=== PATIENT | female | born 2005 | race Caucasian/White ===

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

== ENCOUNTER 2025-03-24 11:23 | Emergency (ER) | payer BC, SELFPAY ==
--- OUTSIDE RECORDS SUMMARY | 2025-03-24 11:24 | XMS_ITS | Clinical Summary ---
Author Organization [facility] Address [address] [place] [address] Care Team Providers Care Tubing Oiler Name Role Phone None Reported, Pcp Primary Care Provider Unavail able Source Comments Patient records contain information from all sites at [facility]. For routine questions regarding patient records, call [phone] during business hours, M-F 8:00 AM - 5:00 PM Central Time. Record requests for emergency care only can be directed to [phone] at any time.[facility] Allergies No known active allergies Medications * This document contains information received from the source organization and may not represent a complete record from that organization. No known medications Active Problems No known active problems Social History Tobacco Use Types Packs/Day Years Used Date Smoking Tobacco: Never Passive Smoke Exposure: Never Smokeless Tobacco: Never Tobacco Cessation:Counseling Given: Not Answered Hunger Vital Sign Answer Date Recorded Within the past 12 months, y ou worried that your food would run out before you got the money to buy more. Never true 06/22/20 23 Within the past 12 months, t he food you bought just didn't last and you didn't have money to get more. Never true 06/22/2023 PRAPARE - Transportation Answer Date Re corded In the past 12 months, has l ack of transportation kept you from medical appointments or from getting medications? No 05/26 In the past 12 months, has l ack of transportation kept you from meetings, work, or from getting things needed for daily living? No 06/22/2023 Housing Stability Answer Date Recorded What is your living situation today? [facility] 06/22/2023 Comments No Sex and Gender Information Value Date Recorded Sex Assigned at Female 06/22/2023 4:09 PM LEGAL INSTRUMENTS EXAMINER Legal Sex Female 5:59 PM CDT Gender Identity Female 06/22/2023 4:09 PM LEGAL INSTRUMENTS EXAMINER Sexual Orientation Straight 06/22/2023 4: 09 PM LEGAL INSTRUMENTS EXAMINER Last Filed Vital Signs Vital Sign Reading Time Taken Comments Blood Pressure 134/85 05/08/2023 6:20 PM CDT Pulse 103 05/08/2023 6:20 PM CDT Temperature 36.7 C (98.1 F) 05/08/2023 6:20 PM CDT Respiratory Rate 18 05/08/2023 7:42 PM CDT Oxygen Saturation 98% 05/08/2023 6:20 PM CDT Inhaled Oxygen Concentration - - Weight 79.6 kg (175 lb 7.8 oz) 05/26/2023 7:57 A M CDT Height 166 cm (5' 5.35) 05/26/2023 7:57 AM CDT Body Mass Index 28.89 05/26/2023 7:57 AM CDT Plan of Treatment Health Maintenance Due Date Last Done Comments Anemia/Iron Deficiency Screening During Well Child Visit (if High Risk Menstruating Female) 2004 Chlamydia and Gonorrhea Screening 2004 HIV Screening 2004 Hearing Screening during Well Child Visit 2004 Hepatitis C Screening 2004 TB Screening during Well Child Visit 2004 1 week Well Child Check-Up 2004 1 month Well Child Check-Up 2004 2 month Well Child Check-Up 2004 4 month Well Child Check-Up 01/12/2005 9 month Well Child Check-Up 06/14/2005 15 month Well Child Check-Up 12/12/2005 18 month Well Child Check-Up 03/14/2006 2 year Well Child Check-Up 09/14/2006 30 month Well Child Check-Up 03/14/2007 3 year Well Child Check-Up 09/14/2007 Well Child Check-Up Completed in Past Year 09/14/2007 5 year Well Child Check-Up 09/14/2009 6 year Well Child Check-Up 09/14/2010 7 year Well Child Check-Up 09/14/2011 8 year Well Child Check-Up 09/14/2012 10 year Well Child Check-Up 09/14/2014 12 year Well Child Check-Up 09/14/2016 13 year Well Child Check-Up 09/14/2017 14 year Well Child Check-Up 09/14/2018 Vision Screening during Well Child Visit 2018 15 year Well Child Check-Up 09/14/2019 17 year Well Child Check-Up 09/14/2021 18 year Well Child Check-Up 09/14/2022 19 year Well Child Check-Up 09/14/2023 COVID-19 Vaccine ( season) 2024 05/28/2022, 07/10/2021, 11/17/2020, Additional history exists Depression Screening (Annual PHQ-2) 07/24/2024 19 year Well Child Check-Up 09/14/2024 Well Child Check-Up ([facility]) 09/14/2024 DTaP,Tdap,and Td Vaccines (7 - Td or Tdap) 10/21/2024 10/21/2014, 10/16/2008, 03/07/2006, Additional history exists Influenza Vaccine (#1) 2025 , 06/05/2021, 05/05/2020, Additional history exists Hepatitis B Vaccines Completed 04/25/2005, 2004, 2004 Pneumococcal vaccine (0-49 years) Aged Out 03/07/2006, 04/25/2005, 03/07/2005, Additional history exists No longer eligible based on patient's age to complete this topic IPV Vaccines Completed 10/16/2008, 09/2004, 03/07/2005, Additional history exists HPV Vaccines Completed 01/03/2017, 05/12/2016 Meningococcal Vaccine Completed 08/27/2021, 017 Insurance [facility] Care Teams Tubing Oiler Relationship Specialty Start Date End Date None Reported, Pcp PCP - General Family Medicine 05/08/23
[2025-03-24 11:35] VITALS: BP 137/84; PULSE 91; RESP 18; TEMP 36.5; O2SAT 98; BMI 30.2
--- NOTE | 2025-03-24 11:44 | ED_ITS ---
HPI - Female Genitourinary General Time Seen by Provider: 11:44 Date Seen: 03/24/25 Chief complaint: Urogenital Problems, Female Stated complaint: possible UTI Time Seen by Provider: 03/24/25 11:24 Source: patient and RN notes reviewed Mode of arrival: ambulatory Limitations: no limitations History of Present Illness HPI Narrative: This 19-year-old female is presenting to the ER with concern of possible urinary tract infection. She started with dysuria/burning urination this morning and has started to notice some blood in her urine. She has frequency, is uncom fortable with this. She has no back pain/no flank pain. No nausea or vomiting, no abdominal pain. No fevers or chills. She is on oral contraceptives. No new sexual partners, no concerns for any STIs. She has not had a bladder infection before. MD elicited complaint: dysuria and UTI Related Data Home Medications ?Medication ?Instructions ?Recorded ?Confirmed naproxen 500 mg tablet 500 mg PO .prn pain 08/08/24 12/25/24 Previous Rx's ?Medication ?Instructions ?Recorded levonorgestrel-ethinyl estradiol 1 tab PO QDAY #84 tab s 08/08/24 0.1 mg-20 mcg tablet (Aviane) cephalexin 500 mg tablet 500 mg PO TID #15 tabs 03/24 phenazopyridine 100 mg tablet 100 mg PO TID PRN pain 6 doses #6 03/24/25 tabs Allergies Allergy/AdvReac Type Severity Reaction Status Date / Time seasonal Allergy Mild Sneezing Uncoded 12/25/24 08:35 Review of Systems Narrative: [facility]. [facility] Urinary tract infection (08/06/10) ?N39.0 - Urinary tract infection, site not specified (ICD-10) Left hip pain ?M25.552 - Pain in left hip (ICD-10) Right hip pain ?M25.551 - Pain in right hip (ICD-10) History of deviated nasal septum ?Z87.09 - Personal history of other diseases of the respiratory system (ICD- 10) Surgical History History of surgery ?Z98.890 - Other specified postprocedural states (ICD-10) History of tonsillectomy and adenoidectomy ?Z90.89 - Acquired absence of other organs (ICD-10) Family History Mother Breast cancer Social History What is your current living situation?: I presently have a place to live Problems where you live: no known problems In the past 12 months, utilities in danger of being shut off: no In past 12 months, lack of transportation kept you from medical appts, meetings, work, or getting things needed for daily living: no In the past 12 mos, have been you worried that your food would run out before you had money to buy more?: never true In the past 12 mos, the food you bought just didn't last and you didn't have money to buy more?: never true Smoking Status: Never smoker How often does anyone, including family, friends and others, physically hurt you : never How often does anyone, including family, friends and others, insult or talk down to you: never How often does anyone, including family, friends and others, threaten you with harm: never How often does anyone, including family, friends and others, scream or curse at you: never Exam Const: Vital Signs, click to edit/add: Vital Signs - 24 hr 03/24/25 11:35 Temperature 97.7 F Pulse Rate [Pulse Oximeter] 91 Respiratory Rate 18 Blood Pressure [Ri ght Upper Arm] 137/84 Pulse Oximetry 98 This 19-year-old female is alert, interactive, no apparent distress. Sclera clear, face atraumatic, speech normal. Lungs are clear, good air entry, no wheezing crackles, no tachypnea, no accessory muscle use. No CVA tenderness. CV regular rate and rhythm, no murmur, normal S1-S2. Abdomen is soft, nontender, nondistended, no organomegaly, no rebound or guarding. Documenting provider has reviewed patient's vital signs: yes Course Course ED Course: Patient is presenting with classic UTI symptoms. Urinalysis is in the lab. She is on control. Have discussed peridium with her to help with symptom c ontrol. Will await urinalysis, talk to her once I have this result. If urinalysis is normal, could be other etiologies and will certainly consider. Reevaluation(s) Time of Reevaluation #1: 12:09 Reevaluation #1: Reviewed with patient urinalysis seems to be consistent with UTI. We discussed management. Will discharge to home at this time. Vital Signs Vital signs: Initial Vital Signs Temperature 97.7 F 03/24/25 11:35 Temperature Source Temporal Artery Scan 03/24/25 11:35 Pulse Rate 91 03/24/25 11:35 Respiratory Rate 18 03/24/25 11:35 Blood Pressure 137/84 03/24/25 11:35 Blood Pressure Mean 101 03/24/25 11:35 Pulse Oximetry 98 03/24/25 11:35 Vital Signs Temperature 97.7 F 03/24/25 11:35 Pulse Rate 91 03/24/25 11:35 Respiratory Rate 18 03/24/25 11:35 Blood Pressure 137/84 03/24/25 11:35 Pulse Oximetry 98 03/24/25 11:35 Temperature 97.7 F 03/24/25 11:35 Pulse Rate 91 03/24/25 11:35 Respiratory Rate 18 03/24/25 11:35 Blood Pressure 137/84 03/24/25 11:35 Pulse Oximetry 98 03/24/25 11:35 MDM - Female Genitourinary Lab Data Labs: Lab Results 03/24/25 Range/Units 11:39 Urine Color Yellow (Yellow) Urine Appearance Clear (Clear) Urine pH 6.0 (5.0-8.5) Ur Specific [place] <= 1.005 (1.000-1.030) Urine Protein Negative (Negative) Urine Glucose (UA) Negative (Negative) Urine Ketones Negative (Negative) Urine Blood 3+ A (Negative) Urine Nitrite Negative (Negative) Urine Bilirubin Negative (Negative) Urine Urobilinogen 0.2 (0.2-1.0) Ur Leukocyte Esterase 1+ A (Negative) Urine RBC 0-2 (0-2) Urine WBC 10-25 A (0-5) Ur Squamous Epith Cells None (None-Few) Urine Bacteria Few A (None) Discharge Plan Discharge Clinical Impression: Urinary tract infection Qualifiers: Urinary tract infection type: acute cystitis Hematuria presence: with hematuria Qualified Code(s): N30.01 - Acute cystitis with hematuria Patient Disposition: Home, Self-Care Condition: Stable Instructions: Urinary Tract Infection in Women (ED) Additional Instructions: Start oral antibiotic as soon as possible. Can use the peridium to help decrease urinary symptoms from the urinary tract infection. Push fluids. If you are not improving over the next couple days, feel your worsening or have further concerns at any point, please seek re-evaluation. Activity Level: No Restrictions Prescriptions: New cephalexin 500 mg tablet 500 mg PO TID Qty: 15 0RF phenazopyridine 100 mg tablet 100 mg PO TID PRN (Reason: pain) Qty: 6 0RF No Action naproxen 500 mg tablet 500 mg PO .prn levonorgestrel-ethinyl estrad [Aviane] 0.1-20 mg-mcg tablet 1 tab PO QDAY Qty: 84 4RF Follow Up/Referrals: Provider,Not a Local [Non-Staff, Family Practice] Stand Alone Forms: [facility] Info Instructions
[2025-03-24 11:52] LABS: Appearance Urine Clear (Clear)
== END 2025-03-24 12:21 | disposition home or self-care (01) ==
PROVIDERS: Emergency Provider Family Medicine; PCP Physician Assistant Medical
DX: N30.01 Acute cystitis with hematuria (principal)
CPT/HCPCS: 81001; 87086; 99283